=== PATIENT | male | born 1960 | race African-American/Black ===

== ENCOUNTER 2016-12-25 12:38 | Day surgery (SDC) | payer OTHER, BC ==
[2016-12-25] MEDS ORDERED: ASPIRIN81 M2 PO (12:58)
[2016-12-25] MEDS ORDERED: CALCIUM ACETAT667 MG PO (12:58)
[2016-12-25] MEDS ORDERED: SENSIPAR30 MG PO (12:59)
[2016-12-25] MEDS ORDERED: FUROSEMIDE20 MG PO (12:59)
[2016-12-25] MEDS ORDERED: GABAPENTIN100 MG PO (12:59)
[2016-12-25] MEDS ORDERED: LOPRESSOR25 MG PO (13:00)
[2016-12-25] MEDS ORDERED: OXYCONTIN10 MG PO (13:01)
[2016-12-25] MEDS ORDERED: PREDNISONE5 MG PO (13:01)
[2016-12-25] MEDS ORDERED: DAILY VALUE1 EACH PO (13:02)
[2016-12-25] MEDS ORDERED: MIDRIN1 CAPSULE PO (13:03)
[2016-12-25 14:08] LABS: METH RESISTANT S AUREUS PCR NEGATIVE (NEGATIVE)
[2016-12-25 14:09] LABS: PROBE CHECK PASS; SPECIMEN PROCESSING CONTROL PASS
== END 2016-12-25 14:45 | disposition home or self-care (01) ==
LOC: CATH 12:38
PROVIDERS: Surgery
DX: T82.590A Other mechanical complication of surgically created arteriovenous fistula, initial encounter (principal); N18.6 End stage renal disease; Z99.2 Dependence on renal dialysis
CPT/HCPCS: 87641; C1725; C1769; C1894; J1644; J2250; J3010

== ENCOUNTER 2017-09-16 06:41 | Day surgery (SDC) | payer OTHER, BC ==
[~2017-09-16] VITALS: Ht 177.8 cm; Wt 87.5 kg
[~2017-09-16 06:41] MED LIST: ASPIRIN81 M2 PO; CALCIUM ACETAT667 MG PO; DAILY VALUE1 EACH PO; FUROSEMIDE20 MG PO; GABAPENTIN100 MG PO; LOPRESSOR25 MG PO; MIDRIN1 CAPSULE PO; OXYCONTIN10 MG PO; PREDNISONE5 MG PO; SENSIPAR30 MG PO
[2017-09-16 07:03] VITALS: BP 156/92
[2017-09-16] MEDS ORDERED: VANCOMYCIN125 MG/2.5 PO (07:55)
[2017-09-16 08:53] LABS: BASOPHIL (%) 0.3 % (0-1); EOSINOPHIL (%) 1.2 % (0-5); EOSINOPHIL COUNT 0.1 K/uL (0-0.3); HEMATOCRIT 24.8 % (38.0-50.0); HEMOGLOBIN 8.1 G/DL (12.5-16.6); IMMATURE GRANULOCYTE (%) 0.3 % (0.0-0.7); LYMPHOCYTE COUNT 1.3 K/uL (1.0-2.8); MCHC 32.7 G/DL (30.0-36.0); MCV 91.9 FL (86-99); NEUTROPHIL (%) 78.2 % (45-76); PLATELET COUNT 144 K/uL (156-360); RBC DIS.WIDTH-CV 15.9 % (11.8-14.6); RBC DIS.WIDTH-SD 53.5 % (39-53); WHITE BLOOD COUNT 11.6 K/uL (4.1-10.2)
[2017-09-16 09:15] LABS: CHLORIDE 95 MEQ/L (99-109); CREATININE 8.3 MG/DL (0.6-1.3); GFR ESTIMATE (CALCULATED) 9 mL/min/ (58.99-99999); GLUCOSE 160 mg/dL (70-99); POTASSIUM 3.9 MEQ/L (3.7-5.4); SODIUM 136 MEQ/L (136-147); UREA NITROGEN (BUN) 42 mg/dL (9-23)
[2017-09-16 10:41] VITALS: BP 104/69
== END 2017-09-16 14:23 | disposition home or self-care (01) ==
LOC: SDC 06:41 → 2EAST 06:42 → SDC 09:26 → 2EAST 14:23
PROVIDERS: Surgery
DX: T82.868A Thrombosis due to vascular prosthetic devices, implants and grafts, initial encounter (principal); T82.858A Stenosis of other vascular prosthetic devices, implants and grafts, initial encounter; Y83.2 Surgical operation with anastomosis, bypass or graft as the cause of abnormal reaction of the patient, or of later complication, without mention of misadventure at the time of the procedure; I12.0 Hypertensive chronic kidney disease with stage 5 chronic kidney disease or end stage renal disease; N18.6 End stage renal disease; Z99.2 Dependence on renal dialysis
CPT/HCPCS: 80048; 85025; 87641; 93005; C1725; C1757; C1769; C1874; C1894; C2628; G0378; J0330; J1644; J2250; J3010